=== PATIENT | female | born 1970 | race Hispanic/Latino ===

== ENCOUNTER 2017-06-06 20:15 | Inpatient (IN) | payer MEDICARE, MEDICAID ==
--- NOTE | 2017-06-06 20:55 | C.PDOC ---
History Of Present Illness 46 yo female come in accompanied by family member request detox from alcohol. As per pt, has been in different detox program before. Last alcohol intake few days ago. Otherwise, pt denies suicidal or homocidal ideation, (+) drug abuse. Pt denies any other active physical complaints. At the time of evaluation AAO#3 , cooperative, not in nay apparent distress. Time Seen by Provider: 06/06/17 20:47 Chief Complaint (Nursing): Substance Abuse History Per: Patient, Family Past Medical History Reviewed: Historical Data, Nursing Documentation, Vital Signs Vital Signs: Last Vital Signs Temp 97.6 F 06/07/17 00:29 Pulse 82 06/07/17 00:29 Resp 18 06/07/17 00:58 BP 125/84 06/07/17 00:29 Pulse Ox 99 06/07/17 00:29 - Medical History PMH: Anxiety, Bipolar Disorder, COPD, Fibromyalgia, HTN, Post Traumatic Stress Disorder Family History: States: No Known Family Hx - Social History Hx Alcohol Use: Yes Hx Substance Use: Yes - Immunization History Hx Tetanus Toxoid Vaccination: No Hx Influenza Vaccination: No Hx Pneumococcal Vaccination: No Review Of Systems Except As Marked, All Systems Reviewed And Found Negative. Constitutional: Negative for: Fever, Chills Eyes: Negative for: Vision Change ENT: Negative for: Ear Discharge, Nose Discharge, Throat Pain, Throat Swelling Cardiovascular: Negative for: Chest Pain, Palpitations Respiratory: Negative for: Cough, Shortness of Breath, Hemoptysis, Wheezing Gastrointestinal: Negative for: Nausea, Vomiting, Abdominal Pain, Diarrhea Genitourinary: Negative for: Dysuria, Frequency, Incontinence, Hematuria, Vaginal Bleeding Musculoskeletal: Negative for: Neck Pain, Back Pain Skin: Negative for: Rash Neurological: Negative for: Weakness, Numbness, Altered Mental Status, Headache , Dizziness Psych: Positive for: Withdrawal. Negative for: Suicidal ideation Physical Exam - Physical Exam Appears: Well, Non-toxic, No Acute Distress Skin: Normal Color, Warm, Dry, No Rash Head: Atraumatic, Normacephalic Eye(s): bilateral: PERRL Nose: No Flaring, No Discharge Oral Mucosa: Moist, No Drooling Tongue: Normal Appearing Lips: Normal Appearing Throat: No Erythema, No Exudate, No Drooling Neck: Supple Cardiovascular: Rhythm Regular, No Murmur, No JVD Respiratory: No Decreased Breath Sounds, No Accessory Muscle Use, No Rales, No Rhonchi, No Stridor, No Wheezing Gastrointestinal/Abdominal: Soft, No Tenderness, No Distention, No Guarding Back: No CVA Tenderness Extremity: Normal ROM, No Pedal Edema, No Deformity Neurological/Psych: Oriented x3, Normal Speech, Normal Motor, Normal Sensation, Normal Reflexes ED Course And Treatment - Laboratory Results Result Diagrams: 06/06/17 21:27 06/06/17 21:27 Lab Interpretation: Normal O2 Sat by Pulse Oximetry: 95 Pulse Ox Interpretation: Normal - Radiology CXR: Interpreted by Me, Viewed By Me CXR Interpretation: Yes: No Acute Disease Progress Note: On re-eavluation, pt is comfortable, cooperative, not in any apparent distress. Blood work review and appears normal. UA (+) nitrate. UCx - pending. Macrobid given orally. Pt is medically cleared for crisis evaluation now. After the crisis /psych evaluation admission arranged to service of Dr. Bowman with Dx: Alcohol dependence. Disposition - Disposition Disposition: HOSPITALIZED Disposition Time: 22:03 Condition: STABLE - Clinical Impression Clinical Impression: Alcohol dependence, Drug abuse, UTI (urinary tract infection)
[2017-06-06 21:34] LABS: BASO % 0.8 % (0.0-2.0); EOS # 0.2 K/uL (0.0-0.7); EOS % 3.4 % (0.0-4.0); LYMPH # 2.9 K/uL (1.0-4.3); LYMPH % 44.3 % (20.0-40.0); MEAN CELL VOLUME 99.1 fL (81.0-99.0); MEAN CORPUSCULAR HGB CONC 33.3 g/dL (33.0-37.0); MEAN PLATELET VOLUME 9.6 fL (7.2-11.7); MONO # 0.6 K/uL (0.0-0.8); MONO % 8.6 % (0.0-10.0); RED CELL DISTRIBUTION WIDTH 16.9 % (11.5-14.5); WHITE BLOOD COUNT 6.5 K/uL (4.8-10.8)
[2017-06-06 21:40] LABS: RBC URINE 1 /hpf (0-3); URINE BACTERIA MANY (<OCC); URINE BILIRUBIN NEGATIVE (NEGATIVE); URINE BLOOD NEGATIVE (NEGATIVE); URINE COLOR Yellow (YELLOW); URINE GLUCOSE (UA) NORMAL (Normal); URINE HYALINE CAST 0-2 /lpf (0-2); URINE KETONE NEGATIVE (NEGATIVE); URINE LEUKOCYTE ESTERASE 3+ Leu/uL (Negative); URINE PROTEIN NEGATIVE (NEGATIVE); WBC URINE 40 /hpf (0-5)
[2017-06-06 21:48] LABS: CHLORIDE 91 mmol/L (98-107); POTASSIUM 3.6 mmol/L (3.6-5.2); SODIUM 132 mmol/L (132-148)
[2017-06-06 21:50] LABS: BILIRUBIN,TOTAL 0.7 mg/dL (0.2-1.3); CARBON DIOXIDE 29 mmol/L (22-30); GFR AFRICAN-AMERICAN > 60
[2017-06-06 21:51] LABS: ALB/GLOB RATIO 1.7 (1.0-2.1); ALKALINE PHOSPHATASE 131 U/L (38-126); ALT/SGPT 67 U/L (9-52); AST/SGOT 86 U/L (14-36); BLOOD UREA NITROGEN 8 mg/dL (7-17); CALCIUM 9.2 mg/dl (8.6-10.4); GLUCOSE,RANDOM 96 mg/dL (65-105)
[2017-06-06 21:52] LABS: ALCOHOL SERUM < 10 mg/dl (0-10)
[2017-06-06] MEDS ORDERED: Albuterol HFA 90 mcg/actuation (8 g) INH PRN (23:31)
--- NOTE | 2017-06-07 02:45 | PCM.BM ---
<Abel Esparza - Last Filed: 06/07/17 02:43> Treatment Plan Problems - Problems identified on initial assessmt Alcohol Abuse Date Initiated: 06/07/17 Time Initiated: 00:30 Assessment reference: NA Status: Active Treatment assets and liabiliti Patient Assests: cooperative, ADL independent Patient Liabilities: substance abuse, medical problems (COPD) - Milieu Protocol Maintain good personal hygiene: daily Encourage regular showers, daily Remind patient to perform daily oral care Conduct patient checks and document Observation sheet: Q15 minutes Maintain personal safety: every shift Educate patient to report safety concerns to staff, every shift Monitor environment for contraband/sharps Medication safety: Monitor for expected outcome, potential side effects: every shift, Assess barriers to learning: every shift, Assess readiness for medication education: every shift <Calista Garcia - Last Filed: 06/09/17 12:57> Family Contact Family involvement: Family/SO is involved Family contact: Patient agrees to contact, Family contacted unit to give information - Goals for Treatment Patient goals for treatment: Complete detox and apply for rehab--either short or retirement. Discharge/Continuing Care - Education Needs Education Needs: Patient Medication, Patient Diagnosis/Disease Process, Patient Coping Skills, Patient Anger Management skills, Patient Placement options, Patient Community resources - Discharge Discharge Criteria: Normal sleep pattern, Ability to care for self, No longer exhibiting s/s of withdrawal, Reduction of target symptoms Discharge to:: Substance Abuse Rehab - Treatment Team Participation Patient/Family/SO Statement: 06/09/17 12:56 "I wanna go to rehab from here either one...short or terminal gauger supervisor. I've been to [facility] before. I wouldn't mind going back there." Discussed with Family/SO: No Was Patient/Family/SO present at Treatment Team Meeting: Yes <Cristal Diaz - Last Filed: 06/09/17 21:44> - Diagnosis (1) Alcohol dependence Status: Acute Interventions: 06/09/17 21:44 * Assess 7x/week regarding severity of withdrawal * Educate regarding risks, benefits, side effects and alternatives of medications * Use Motivational Interviewing for abstinence * Use CBT for relapse prevention * Medication management for withdrawal symptoms * Encourage medication assisted treatment *
[2017-06-07] MEDS: Multiple Vitamins Tab PO SCH (09:01)
--- NOTE | 2017-06-07 13:09 | RAD ---
HISTORY: Cough COMPARISON: Okay thanks okay thanks TECHNIQUE: Chest PA and lateral FINDINGS: LUNGS: Subsegmental atelectasis/ scarring in the right lung base. Marked elevation right hemidiaphragm could be due to eventration. PLEURA: No significant pleural effusion identified. No pneumothorax apparent. CARDIOVASCULAR: Normal. OSSEOUS STRUCTURES: No significant abnormalities. VISUALIZED UPPER ABDOMEN: Normal. OTHER FINDINGS: None. IMPRESSION: Subsegmental atelectasis/ scarring in the right lung base. Marked elevation right hemidiaphragm could be due to eventration.
[2017-06-07] MEDS ORDERED: Prazosin HCL 5 mg PO SCH (22:00)
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
[2017-06-08] MEDS: Multiple Vitamins Tab PO SCH (10:11)
--- NOTE | 2017-06-08 15:14 | PCM.PYCHPN ---
Psychiatric Progress Note - Psychiatric Progress Note Patient seen today, length of contact: 16 minutes Patient Chief Complaint: "I'm feeling better." Problems Identified/Issues Discussed: Pt was seen and evaluated. Chart reviewed. Pt's Urine culture reports shows +ve for Klebsiella Pneumonia. Pt reported that her withdrawal symptoms are getting better. She reported she slept well and appetite is getting better. She denied depressive symptoms. She is compliant with meds. She denied side effects of medication. Medical Problems: UTI Diagnostic Results: Urine culture +ve for Klebsiella Pneumonia DSM 5 Symptoms Update: ETOH DEPENDENCE SEVERE, WITHDRAWAL SYMPTOMS, TOBACCO USE D/O SEVERE BIPOLAR D/O MRE DEPRESSED MOOD PTSD Chronic UTI / to Klebsiella Pneumonia Medication Change: Yes (ativan taper) Medical Record Reviewed: Yes Consults ordered or reviewed: Consulted Medicine team for UTI Mental Status Examination - Cognitive Function Orientation: Person, Place, Situation, Time Memory: Intact Attention: WNL Concentration: WNL Association: WN Fund of Knowledge: [facility] Decription of patient's judgement and insights: fair/fair - Mood Mood: Anxious - Affect Affect: Constricted, Depressed - Speech Speech: Appropriate - Formal Thought Process Formal Thought Process: No Impairment Psychotic Thoughts and Behaviors: denied - Homicidal Ideation Homicidal Ideation: No Goal/Treatment Plan - Goal/Treatment Plan Progress Toward Problem(s) and Goals/Treatment Plan: labs reviewed ativan taper Continue FLuoxetine 40 mg po daily Prazosin 5 mg po HS Continue Methadone to 10 mg po BID for fibromyalgia Trazadone for insomnia Gabapentin for augmentation Vitamins, thiamine and Folic acid Monitor vitals Attend groups and activities NC for abstinence and CBT for relapse prevention Support and psychoeducation Consider and encourage MAT Consulted Medicine team for UTI Estimated Date of D/C: 06/10/17 - Smoking Cessation Smoking Cessation Initiated: Yes
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
[2017-06-08] MEDS: Saccharomyces Boulardi 250 mg Cap PO SCH (18:16)
[2017-06-08] MEDS: Fluticasone-Salmeterol 250-50mcg Diskus INH SCH (20:01)
[2017-06-09 08:27] LABS: WHITE BLOOD COUNT 6.1 K/uL (4.8-10.8)
[2017-06-09 08:36] LABS: CHLORIDE 97 mmol/L (98-107); POTASSIUM 4.3 mmol/L (3.6-5.2); SODIUM 133 mmol/L (132-148)
[2017-06-09 08:38] LABS: AST/SGOT 56 U/L (14-36); BILIRUBIN,TOTAL 0.6 mg/dL (0.2-1.3); CARBON DIOXIDE 27 mmol/L (22-30); GFR AFRICAN-AMERICAN > 60
[2017-06-09 08:39] LABS: ALB/GLOB RATIO 1.6 (1.0-2.1); ALKALINE PHOSPHATASE 105 U/L (38-126); ALT/SGPT 51 U/L (9-52); BLOOD UREA NITROGEN 10 mg/dL (7-17); CALCIUM 9.1 mg/dl (8.6-10.4); GLUCOSE,RANDOM 102 mg/dL (65-105); MAGNESIUM 1.6 mg/dL (1.6-2.3); TOTAL PROTEIN 5.5 g/dL (6.3-8.3)
[2017-06-09 08:43] LABS: BASO # 0.1 K/uL (0.0-0.2); BASO % 1.1 % (0.0-2.0); EOS # 0.1 K/uL (0.0-0.7); EOS % 2.4 % (0.0-4.0); HEMATOCRIT 43.9 % (34.0-47.0); LYMPH # 2.8 K/uL (1.0-4.3); LYMPH % 45.9 % (20.0-40.0); MEAN CELL VOLUME 99.8 fL (81.0-99.0); MEAN CORPUSCULAR HEMOGLOBIN 33.1 pg (27.0-31.0); MEAN CORPUSCULAR HGB CONC 33.2 g/dL (33.0-37.0); MEAN PLATELET VOLUME 9.7 fL (7.2-11.7); MONO # 0.6 K/uL (0.0-0.8); MONO % 9.4 % (0.0-10.0); NRBC % 0.4 % (0.0-2.0); RED CELL DISTRIBUTION WIDTH 17.1 % (11.5-14.5)
[2017-06-09] MEDS ORDERED: Pneumococcal 23-Valent Vaccine IM ONE (10:00)
[2017-06-09] MEDS: Fluticasone-Salmeterol 250-50mcg Diskus INH SCH ×2 (10:40→20:34)
[2017-06-09] MEDS: Tiotropium 18 mcg Cap For Inhalation INH SCH (10:41)
[2017-06-09] MEDS: Multiple Vitamins Tab PO SCH (10:47)
[2017-06-09] MEDS: Saccharomyces Boulardi 250 mg Cap PO SCH ×2 (10:47→17:00)
--- NOTE | 2017-06-09 12:46 | CARD ---
APPROVED REPORT EKG Measurement Heart [id number] MD [id number] <Conclusion> Sinus bradycardia Otherwise normal ECG
--- NOTE | 2017-06-09 13:30 | CP.PCM.PN ---
<Sudha Barakat - Last Filed: 06/09/17 13:27> Subjective - Date & Time of Evaluation Date of Evaluation: 06/09/17 Time of Evaluation: 13:28 - Subjective Subjective: Medicine Consult Note Patient has been seen and examined. Currently complains of audio hallucinations. Denies any visual hallucinations. Patient also complains of non -bloody watery diarrhea, mild abdominal pain, chills, SOB (she attributes to COPD), tremor and urinary urgency. Patient denies any fever, chest pain, or palpitations Objective - Vital Signs/Intake and Output Vital Signs (last 24 hours): Temp Pulse Resp BP Pulse Ox 98.2 F 73 18 126/89 100 06/09/17 09:28 06/09/17 09:28 06/09/17 09:28 06/09/17 09:28 06/09/17 09:28 - Medications Medications: Current Medications Albuterol (Ventolin Hfa 90 Mcg/Actuation (8 G)) 1 puff INH RQ6 PRN PRN Reason: asthma Ciprofloxacin (Cipro) 500 mg PO BID [facility] Stop: 06/14/17 18:00 Last Admin: 06/09/17 10:47 Dose: 500 mg Clonidine HCl (Catapres) 0.1 mg PO Q8H PRN PRN Reason: HTN, opioid withdrawal sx Last Admin: 06/08/17 20:07 Dose: 0.1 mg Dicyclomine HCl (Bentyl) 10 mg PO Q6 PRN PRN Reason: Muscle spasm Famotidine (Pepcid) 20 mg PO BID [facility] Last Admin: 06/09/17 10:47 Dose: 20 mg Fluoxetine HCl (Prozac) 40 mg PO DAILY [facility] Last Admin: 06/09/17 10:47 Dose: 40 mg Folic Acid (Folic Acid) 1 mg PO DAILY [facility] Last Admin: 06/09/17 10:47 Dose: 1 mg Haloperidol (Haldol) 5 mg PO Q8H PRN PRN Reason: MODERATE AGITATION, PSYCHOSIS Haloperidol Lactate (Haldol) 5 mg IM Q8H PRN PRN Reason: psychosis, severe agitation Hydroxyzine HCl (Atarax) 25 mg PO Q6 PRN PRN Reason: Anxiety Last Admin: 06/09/17 00:57 Dose: 25 mg Loperamide HCl (Imodium) 2 mg PO Q8 PRN PRN Reason: Diarrhea Lorazepam (Ativan) 2 mg PO Q8H PRN PRN Reason: Severe Agitation Lorazepam (Ativan) 2 mg PO BID [facility] Stop: 06/10/17 10:01 Last Admin: 06/09/17 11:27 Dose: Not Given Methadone HCl (Methadone) 15 mg PO BID [facility] Multivitamins (Hexavitamin) 1 tab PO DAILY [facility] Last Admin: 06/09/17 10:47 Dose: 1 tab Nicotine (Nicoderm Cq) 1 patch TD DAILY [facility] Last Admin: 06/09/17 10:47 Dose: 1 patch Ondansetron HCl (Zofran Tab) 4 mg PO Q8H PRN PRN Reason: Nausea/Vomiting Prazosin HCl (Minipress) 5 mg PO HS [facility] Last Admin: 06/08/17 21:25 Dose: 5 mg Saccharomyces Boulardii (Florastor) 250 mg PO BID [facility] Last Admin: 06/09/17 10:47 Dose: 250 mg Fluticasone/Salmeterol (Advair Diskus 250/50) 1 puff INH RQ12 [facility] Last Admin: 06/09/17 10:40 Dose: Not Given Thiamine HCl (Vitamin B1 Tab) 100 mg PO DAILY [facility] Last Admin: 06/09/17 10:47 Dose: 100 mg Tiotropium Keene (Spiriva) 18 mcg INH RQ24 [facility] Last Admin: 06/09/17 10:41 Dose: Not Given Trazodone HCl (Desyrel) 50 mg PO HS PRN PRN Reason: Insomnia Last Admin: 06/08/17 21:24 Dose: 50 mg - Labs Labs: 06/09/17 08:09 06/09/17 08:09 - Constitutional Appears: No Acute Distress, Unkempt - Head Exam Head Exam: ATRAUMATIC, NORMAL INSPECTION, NORMOCEPHALIC - Eye Exam Eye Exam: EOMI, PERRL - ENT Exam ENT Exam: Mucous Membranes Moist - Neck Exam Neck Exam: absent: Lymphadenopathy - Respiratory Exam Respiratory Exam: Clear to Ausculation Bilateral, NORMAL BREATHING PATTERN. absent: Accessory Muscle Use, Wheezes - Cardiovascular Exam Cardiovascular Exam: RRR, +S1, +S2 - GI/Abdominal Exam GI & Abdominal Exam: Soft, Tenderness (Suprapubic and upper quadrant), Normal Bowel Sounds. absent: Distended, Firm, Guarding, Rigid, Organomegaly - Extremities Exam Extremities Exam: Normal Capillary Refill. absent: Pedal Edema - Back Exam Back Exam: CVA tenderness (L) - Neurological Exam Neurological Exam: Alert, Awake Additional comments: mild tremor - Psychiatric Exam Psychiatric exam: Normal Affect, Normal Mood - Skin Skin Exam: Dry, Intact Assessment and Plan - Assessment and Plan (Free Text) Assessment: 46 year old female with PMHx of COPD, HTN, and polysubstance abuse admitted to detox unit for alcohol abuse. Plan: (1) UTI (urinary tract infection) (Acute) Urine Cx (+) Klebsiella Cipro 500 mg PO BID - Day 2 of 7 days Florastor 25 mg PO BID - Day 2 of 37 days (2) Alcohol dependence (Acute) Management as per detox team. (3) COPD (chronic obstructive pulmonary disease) Cont. home medications: Spiriva 18 mcg INH daily Advair 250/50 1 puff Q12 (Symbicort not on formulary) Ventolin HFA PRN for SOB (4) HTN (hypertension) Cont. Home med: Prazosin 5 mg PO HS (5) Drug abuse ([place]) Management as per detox team (6) Tobacco abuse (Acute) Nicotine patch (7) Prophylactic measure Pepcid 20 mg PO BID [facility] We will sign of on this patient. Please feel free contact medicine team with any questions. Thank you. Patient seen, discussed, and reviewed with Attending Sudha Barakat PGY-1 <Johan Machado - Last Filed: 06/09/17 21:07> Objective - Vital Signs/Intake and Output Vital Signs (last 24 hours): Temp Pulse Resp BP Pulse Ox 98.5 F 69 18 129/90 96 06/09/17 19:32 06/09/17 19:32 06/09/17 19:32 06/09/17 19:32 06/09/17 19:32 - Medications Medications: Current Medications Albuterol (Ventolin Hfa 90 Mcg/Actuation (8 G)) 1 puff INH RQ6 PRN PRN Reason: asthma Ciprofloxacin (Cipro) 500 mg PO BID [facility] Stop: 06/14/17 18:00 Last Admin: 06/09/17 17:00 Dose: 500 mg Clonidine HCl (Catapres) 0.1 mg PO Q8H PRN PRN Reason: HTN, opioid withdrawal sx Last Admin: 06/09/17 16:35 Dose: 0.1 mg Dicyclomine HCl (Bentyl) 10 mg PO Q6 PRN PRN Reason: Muscle spasm Famotidine (Pepcid) 20 mg PO BID [facility] Last Admin: 06/09/17 16:59 Dose: 20 mg Fluoxetine HCl (Prozac) 40 mg PO DAILY [facility] Last Admin: 06/09/17 10:47 Dose: 40 mg Folic Acid (Folic Acid) 1 mg PO DAILY [facility] Last Admin: 06/09/17 10:47 Dose: 1 mg Haloperidol (Haldol) 5 mg PO Q8H PRN PRN Reason: MODERATE AGITATION, PSYCHOSIS Haloperidol Lactate (Haldol) 5 mg IM Q8H PRN PRN Reason: psychosis, severe agitation Hydroxyzine HCl (Atarax) 25 mg PO Q6 PRN PRN Reason: Anxiety Last Admin: 06/09/17 00:57 Dose: 25 mg Loperamide HCl (Imodium) 2 mg PO Q8 PRN PRN Reason: Diarrhea Lorazepam (Ativan) 2 mg PO Q8H PRN PRN Reason: Severe Agitation Last Admin: 06/09/17 17:00 Dose: 2 mg Lorazepam (Ativan) 2 mg PO BID [facility] Stop: 06/10/17 10:01 Last Admin: 06/09/17 17:01 Dose: Not Given Methadone HCl (Methadone) 15 mg PO BID [facility] Last Admin: 06/09/17 17:04 Dose: 15 mg Multivitamins (Hexavitamin) 1 tab PO DAILY [facility] Last Admin: 06/09/17 10:47 Dose: 1 tab Nicotine (Nicoderm Cq) 1 patch TD DAILY [facility] Last Admin: 06/09/17 10:47 Dose: 1 patch Ondansetron HCl (Zofran Tab) 4 mg PO Q8H PRN PRN Reason: Nausea/Vomiting Prazosin HCl (Minipress) 5 mg PO HS [facility] Last Admin: 06/08/17 21:25 Dose: 5 mg Saccharomyces Boulardii (Florastor) 250 mg PO BID [facility] Last Admin: 06/09/17 17:00 Dose: 250 mg Fluticasone/Salmeterol (Advair Diskus 250/50) 1 puff INH RQ12 [facility] Last Admin: 06/09/17 20:34 Dose: 1 puff Thiamine HCl (Vitamin B1 Tab) 100 mg PO DAILY [facility] Last Admin: 06/09/17 10:47 Dose: 100 mg Tiotropium Keene (Spiriva) 18 mcg INH RQ24 [facility] Last Admin: 06/09/17 10:41 Dose: Not Given Trazodone HCl (Desyrel) 50 mg PO HS PRN PRN Reason: Insomnia Last Admin: 06/08/17 21:24 Dose: 50 mg - Labs Labs: 06/09/17 08:09 06/09/17 08:09 Attending/Attestation - Attestation I have personally seen and examined this patient.: Yes I have fully participated in the care of the patient.: Yes I have reviewed all pertinent clinical information, including history, physical exam and plan: Yes Notes (Text): 06/09/17 21:06 Patient was seen and examined at 1:45 PM 760 B 06/09/17. Exam, Assessment and Plan were thoroughly gone over with the resident. Please also see Physician Communication note 06/09/17. Johan Machado D.O.
--- NOTE | 2017-06-09 16:03 | PCM.PYCHPN ---
Psychiatric Progress Note - Psychiatric Progress Note Patient seen today, length of contact: 17 minutes Patient Chief Complaint: "I feel a little better" Problems Identified/Issues Discussed: The pt is seen, chart reviewed, case discussed with staff. The pt is compliant with medications and reports no side-effects. Patient is slightly more alert. Symptoms are improving but needs more time to stabilize. After care discussed like rehab perhaps at [facility], support and psychoeducation given. Medication Change: Yes (detox changes daily) Medical Record Reviewed: Yes Mental Status Examination - Cognitive Function Orientation: Person, Place, Situation, Time Memory: Intact Attention: WNL Concentration: WNL Association: WNL Fund of Knowledge: WNL - Mood Mood: Anxious - Affect Affect: Constricted, Depressed - Speech Speech: Appropriate, Soft - Formal Thought Process Formal Thought Process: No Impairment - Suicidal Ideation Suicidal Ideation: No - Homicidal Ideation Homicidal Ideation: No Goal/Treatment Plan - Goal/Treatment Plan Need for Continued Stay: Remain at risks for inpatient hospitalization, Discharge may exacerbated symptoms, Severe functional impairment Progress Toward Problem(s) and Goals/Treatment Plan: labs reviewed ativan taper Continue FLuoxetine 40 mg po daily Prazosin 5 mg po HS Continue Methadone to 15 mg po BID for fibromyalgia Trazadone for insomnia Gabapentin for augmentation Vitamins, thiamine and Folic acid Monitor vitals Attend groups and activities [place] for abstinence and CBT for relapse prevention Support and psychoeducation Consider and encourage MAT refer to rehab or IOP like [facility]. Estimated Date of D/C: 06/10/17
--- NOTE | 2017-06-09 21:07 | CP.PCM.PCO ---
Physician Communication Note - Physician Communication Note Physician Communication Note: Please see above.
[2017-06-09] MEDS: Prazosin HCL 5 mg PO SCH (21:46)
[2017-06-10] MEDS: Fluticasone-Salmeterol 250-50mcg Diskus INH SCH ×2 (08:31→19:45)
[2017-06-10] MEDS: Tiotropium 18 mcg Cap For Inhalation INH SCH (08:32)
[2017-06-10] MEDS ORDERED: Influenza Vaccine 60 mcg/0.5 mL SYR (4YR UP) IM ONE (10:00)
[2017-06-10] MEDS: Multiple Vitamins Tab PO SCH (11:13)
[2017-06-10] MEDS: Saccharomyces Boulardi 250 mg Cap PO SCH ×3 (11:20→18:05)
--- NOTE | 2017-06-10 14:01 | PCM.PYCHPN ---
Psychiatric Progress Note - Psychiatric Progress Note Patient seen today, length of contact: 16 minutes Patient Chief Complaint: "I feel better, still uncomfortable" Problems Identified/Issues Discussed: The pt is seen, chart reviewed, case discussed with staff. The pt is compliant with medications and reports no side-effects. Patient is still lethargic. Symptoms are improving but needs more time to stabilize. After care discussed with continuation of finding a rehab facility Support and psychoeducation given. Medication Change: Yes Medical Record Reviewed: Yes Mental Status Examination - Cognitive Function Orientation: Person, Place, Situation, Time Memory: Intact Attention: WNL Concentration: Poor Association: WNL Fund of Knowledge: WNL Decription of patient's judgement and insights: appeared very fatigued - Mood Mood: Anxious - Affect Affect: Constricted, Depressed - Speech Speech: Appropriate, Soft - Formal Thought Process Formal Thought Process: No Impairment - Suicidal Ideation Suicidal Ideation: No - Homicidal Ideation Homicidal Ideation: No Goal/Treatment Plan - Goal/Treatment Plan Need for Continued Stay: Remain at risks for inpatient hospitalization, Discharge may exacerbated symptoms, Severe functional impairment Progress Toward Problem(s) and Goals/Treatment Plan: Continue ativan taper Continue FLuoxetine 40 mg po daily Prazosin 5 mg po HS Continue Methadone to 15 mg po BID Trazadone for insomnia Gabapentin for augmentation Vitamins, thiamine and Folic acid Monitor vitals Attend groups and activities [place] for abstinence and CBT for relapse prevention Support and psychoeducation Consider and encourage MAT refer to rehab perhaps [facility]. Estimated Date of D/C: 06/10/17
[2017-06-10] MEDS: Prazosin HCL 5 mg PO SCH (22:45)
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
[2017-06-11 09:13] VITALS: RESP 18; TEMP 97.8
[2017-06-11] MEDS: Fluticasone-Salmeterol 250-50mcg Diskus INH SCH (09:40)
[2017-06-11] MEDS: Tiotropium 18 mcg Cap For Inhalation INH SCH (09:40)
[2017-06-11] MEDS: Multiple Vitamins Tab PO SCH (09:43)
[2017-06-11] MEDS: Saccharomyces Boulardi 250 mg Cap PO SCH (09:45)
[2017-06-11 14:00] VITALS: BP 113/75; PULSE 75; O2SAT 95
== END 2017-06-11 14:35 | disposition home or self-care (01) | DRG 895 ==
LOC: C.ER 20:15 → C.7D 23:16
PROVIDERS: ADMIT Psychiatry & Neurology Psychiatry; ATTEND Psychiatry & Neurology Psychiatry
PROC: HZ2ZZZZ Detoxification Services for Substance Abuse Treatment (ICD-10-PCS; principal; 2017-06-06)
PROC: HZ52ZZZ Individual Psychotherapy for Substance Abuse Treatment, Cognitive-Behavioral (ICD-10-PCS; 2017-06-06)
PROC: HZ59ZZZ Individual Psychotherapy for Substance Abuse Treatment, Supportive (ICD-10-PCS; 2017-06-06)
PROC: HZ56ZZZ Individual Psychotherapy for Substance Abuse Treatment, Psychoeducation (ICD-10-PCS; 2017-06-06)
DX: F10.239 Alcohol dependence with withdrawal, unspecified (principal); J44.0 Chronic obstructive pulmonary disease with (acute) lower respiratory infection; N39.0 Urinary tract infection, site not specified; F11.10 Opioid abuse, uncomplicated; F31.9 Bipolar disorder, unspecified; I10 Essential (primary) hypertension; F17.210 Nicotine dependence, cigarettes, uncomplicated; F43.12 Post-traumatic stress disorder, chronic; G47.00 Insomnia, unspecified; F12.90 Cannabis use, unspecified, uncomplicated; F14.90 Cocaine use, unspecified, uncomplicated; B96.1 Klebsiella pneumoniae [K. pneumoniae] as the cause of diseases classified elsewhere; F41.9 Anxiety disorder, unspecified; Z96.651 Presence of right artificial knee joint; M79.7 Fibromyalgia; Z79.51 Long term (current) use of inhaled steroids; Z79.899 Other long term (current) drug therapy; Z81.8 Family history of other mental and behavioral disorders; Z82.49 Family history of ischemic heart disease and other diseases of the circulatory system; Z83.3 Family history of diabetes mellitus